=== PATIENT | female | born 1995 | race Caucasian/White ===

== ENCOUNTER → 2018-07-14 | Outpatient (CLI) | payer OTHER, BC ==
[~2018-07-14] MED LIST: BENZ2TAB5 PO; GUAN1TAB9 PO; HYDR-2761 PO; LEXAPRO5 MG PO; LURA20TA PO; ONDA4TAB12 PO; OXCA300T19 PO; PANT40TA5 PO; TOPI25TA7 PO; [UNRECOGNIZED DRUG - CODE] PO
--- NOTE | 2018-07-14 12:15 | KCIC ---
EXAM: Thyroid sonogram. HISTORY: Hyperthyroidism. TECHNIQUE: Sonographic imaging of the thyroid was performed. COMPARISON: None. FINDINGS: The right thyroid lobe measures 4.5 x 1.3 x 1.2 cm. The left thyroid lobe measures 4.2 x 1.2 x 1.2 cm. The thyroid isthmus measures 2.6 mm. No solid or cystic thyroid lesion is seen. IMPRESSION: Unremarkable thyroid sonogram. Electronically signed by: Kriss Frey MD (07/14/2018 12:12 PM) [id number]
== END | disposition home or self-care (01) ==
LOC: KCIC US 10:53
PROVIDERS: ATTEND Nurse Practitioner Family
DX: E05.90 Thyrotoxicosis, unspecified without thyrotoxic crisis or storm (principal)
CPT/HCPCS: 76536

== ENCOUNTER → 2019-02-09 | Day surgery (SDC) | payer OTHER, BC ==
[~2019-02-09] MED LIST changes: +IV RINGERS,LACTATED 1000ML 1,000 ML IV SCH; +LIDOCAINE 2% PF 5 ML VIAL. ONE; -PANT40TA5 PO; +PANT40TA77 PO; +PROPOFOL 60 ML IV ONE
[2019-02-09 10:50] VITALS: BP 116/63
--- NOTE | 2019-02-09 11:00 | PREOP HP ---
DATE OF SERVICE: 02/09/2019 DATE OF PROCEDURE: 02/09/2019. REQUESTING PHYSICIAN: Mary Kay Jorge APRN PRIMARY CARE PHYSICIAN: Mary Kay Jorge APRN REASON FOR PROCEDURE: Rectal bleeding and nausea and vomiting. HISTORY OF PRESENT ILLNESS: This is a 23-year-old female who presents for nausea, vomiting and rectal bleeding. ALLERGIES: 1. ABILIFY. 2. GEODON. 3. RISPERDAL. PAST MEDICAL HISTORY: 1. Hemorrhoids. 2. Depression. FAMILY MEDICAL HISTORY: Diabetes. MEDICATIONS: MAR reviewed. REVIEW OF SYSTEMS: A 13-point review of systems was done. It is positive as per HPI, otherwise negative. PHYSICAL EXAMINATION: VITAL SIGNS: She is afebrile and her vital signs are stable. GENERAL: She is an obese female, in no apparent distress. HEENT: Oropharynx is clear. CARDIOVASCULAR: S1, S2. LUNGS: Clear. ABDOMEN: Normoactive bowel sounds, soft, nontender, nondistended. EXTREMITIES: No edema. NEUROLOGIC: Awake, alert, oriented x 3. ASSESSMENT AND PLAN: 1. Nausea and vomiting. Proceed with upper endoscopy for further evaluation. 2. Colonoscopy. Proceed with colonoscopy for further evaluation. RAQUEL JACOB MD DR: NIKKIE/alondra JOB#: [id number] / [id number]
--- NOTE | 2019-02-10 15:07 | PATHOLOGY ---
[facility] Accession Number: [id number] . 01 Material submitted: . PART A: small bowel - SMALL BOWEL BX PART B: stomach - GASTRIC ANTRUM AND BODY PART C: esophagus - DISTAL ESOPHAGUS BX. Modifiers: distal PART D: ileum - TERMINAL ILEUM BX PART E: colon - RIGHT COLON BX. Modifiers: right PART F: colon - LEFT COLON BX. Modifiers: left . 01 Clinical history: . Nausea, vomiting, abdominal pain. . 02 Diagnosis: A. Small bowel biopsies: - Mild nonspecific duodenitis with few hyperplastic mucosal-associated lymphoid aggregates. . B. Gastric biopsies, gastric antrum and gastric body: - Chronic gastritis, mild. . C. Esophageal biopsies, distal esophagus: - Segments of hyperplastic squamous esophageal mucosa and segment of esophagogastric mucosa showing chronic inflammation indicative of reflux esophagitis. . D. Small intestine mucosa, terminal ileum biopsies: - Hyperplastic mucosal-associated lymphoid aggregate. . E. Colonic mucosa, right colon biopsies: - No significant pathologic abnormalities, with few hyperplastic mucosal-associated lymphoid aggregates. . F. Colonic mucosa, left colon biopsies: - No significant pathologic abnormalities, with several hyperplastic mucosal-associated lymphoid aggregates. (JPM:[facility] 02/10/2019) [facility] 02/10/2019 1405 Local . 02 Comment: Sections of the small bowel biopsy reveal segments of duodenal mucosa showing congestion, focal recent hemorrhage and mild chronic inflammation with a few admixed neutrophils. There are a few focally hyperplastic mucosal-associated lymphoid aggregates. The mucosal villi show no sprue-like changes. The findings are supportive of the diagnosis of mild nonspecific duodenitis. . Sections of the gastric biopsy reveal segments of gastric body and gastric antral mucosa showing congestion and mild chronic inflammation. A properly controlled immunoperoxidase stain for Helicobacter is negative for Helicobacter organisms. . Sections of the distal esophageal biopsy reveal segments of hyperplastic squamous esophageal mucosa and a segment of esophagogastric mucosa showing moderate chronic inflammation. There are few eosinophils focally present within the hyperplastic squamous esophageal mucosa. The findings are supportive of the diagnosis of reflux esophagitis. There is no evidence of Gonzalez's change, dysplasia or malignancy. . Sections of the terminal ileum biopsy reveal segments of small intestine mucosa containing a mucosal-associated lymphoid aggregate. The mucosal villi show no sprue-like changes or significant inflammatory changes. . Sections of the right colon and left colon biopsies appear similar and reveal segments of colonic mucosa containing several focally hyperplastic mucosal-associated lymphoid aggregates. There is no evidence of a chronic destructive colitis, lymphocytic colitis, or collagenous colitis. (JPM:[facility] 02/10/2019) . 02 Electronically signed: . Gray Figueroa MD, Pathologist NPI- [id number] . 01 Gross description: . A. Received in formalin labeled "Kraai, Melva, small bowel BX" is a 0.7 x 0.7 x 0.2 cm aggregate of stanford-brown mucosa fragments. The specimen is submitted in A1. . B. Received in formalin labeled "Kraai, Melva, gastric antrum and body" is a 0.8 x 0.6 x 0.1 cm aggregate of stanford-brown mucosa fragments. The specimen is submitted in B1. . C. Received in formalin labeled "Kraai, Melva, distal esophagus BX" is a 0.8 x 0.6 x 0.1 cm aggregate of satnford-brown mucosa fragments. The specimen is submitted in C1. . D. Received in formalin labeled "Kraai, Melva, terminal ileum BX" is a 0.6 x 0.5 x 0.1 cm aggregate of stanford-brown mucosa fragments. The specimen is submitted in D1. . E. Received in formalin labeled "Kraai, Melva, right colon BX" is a 0.9 x 0.5 x 0.1 cm aggregate of stanford-brown mucosa fragments. The specimen is submitted in E1. . F. Received in formalin labeled "Kraai, Melva, left colon BX" is a 0.7 x 0.6 x 0.1 cm aggregate of stanford-brown mucosa fragments. The specimen is submitted in F1. ([facility] [place]; 02/09/2019) [facility] 02/09/2019 1748 Local . 02 Pathologist provided ICD-10: K29.80, K29.50, K20.9 . 02 CPT . 766764, 220691, 244635, [id number], [id number], [id number], [id number] Specimen Comment: A courtesy copy of this report has been sent to [phone] Specimen Comment: Report sent to Performed at: [address] [facility], [place] [id number] MD Davey Jarvis MD Phone: [phone] Performed at: [facility] [address] [place], [place] [id number] MD Gray Figueroa MD Phone: [phone]
== END ==
LOC: ENDOS 08:13
PROVIDERS: ATTEND Internal Medicine Gastroenterology
DX: K62.5 Hemorrhage of anus and rectum (principal); K29.50 Unspecified chronic gastritis without bleeding; K63.89 Other specified diseases of intestine; K29.80 Duodenitis without bleeding; K64.0 First degree hemorrhoids; K21.0 Gastro-esophageal reflux disease with esophagitis; F32.9 Major depressive disorder, single episode, unspecified; Z88.1 Allergy status to other antibiotic agents; Z88.8 Allergy status to other drugs, medicaments and biological substances
CPT/HCPCS: 43239; 45380; 81025; 88305; 88342; J2001; J2704